=== PATIENT | male | born 1995 | race Hispanic/Latino ===

== ENCOUNTER 2019-04-19 19:12 | Emergency (ER) | payer OTHER ==
[~2019-04-19] VITALS: Ht 172.7 cm; Wt 93.2 kg
[2019-04-19] MEDS ORDERED: ACET-683 PO (19:18)
[2019-04-19] MEDS ORDERED: IBUP200T45 PO (19:18)
[2019-04-19 20:17] LABS: INFLUENZA A AMPLIFICATION NEGATIVE (NEGATIVE); INFLUENZA B AMPLIFICATION NEGATIVE (NEGATIVE)
[2019-04-19 20:24] LABS: HEMATOCRIT 40.5 % (42.0-52.0); HEMOGLOBIN 13.5 g/dl (13.5-17.5); MEAN CORPUSCULAR HEMOGLOBIN 29.5 pg (27.0-33.0); MEAN CORPUSCULAR HGB CONC 33.3 g/dl (32.0-36.5); MEAN CORPUSCULAR VOLUME 88.4 fl (80.0-96.0); PLATELET COUNT, AUTOMATED 207 10^3/uL (150-450); RED BLOOD COUNT 4.58 10^6/uL (4.30-6.10); WHITE BLOOD COUNT 11.2 10^3/uL (4.0-10.0)
[2019-04-19 20:45] LABS: MONO SCRN NEGATIVE (NEGATIVE)
[2019-04-19] MEDS ORDERED: MAGIC MOUTHWASH SUSPENSION BTL SSP PRN (21:00)
[2019-04-19] MEDS ORDERED: AZIT500T5 PO (21:29)
[2019-04-19] MEDS ORDERED: MAGICMW SSP (21:30)
[2019-04-19 21:42] VITALS: BP 130/78
[2019-04-19] MEDS ORDERED: AZITHROMYCIN 250 MG TAB PO ONE (21:45)
--- NOTE | 2019-04-20 09:46 | REP ---
REASON: Flu-like illness. FINDINGS: The superior mediastinal structures are midline. The cardiac silhouette is unremarkable in size, shape, and position. The diaphragmatic surfaces of the lungs are regular, and the costophrenic angles are clear. The pulmonary more are clear. The imaged osseous structures are intact. IMPRESSION: There is no acute cardiopulmonary disease. Electronically Signed by Barry Jamison DO 04/20/2019 10:22 A
== END 2019-04-19 21:43 | disposition home or self-care (01) ==
LOC: M ED 19:12
DX: B34.9 Viral infection, unspecified (principal)

== ENCOUNTER 2019-04-21 09:40 | Emergency (ER) | payer OTHER ==
[~2019-04-21] VITALS: Ht 172.7 cm; Wt 92.3 kg
[~2019-04-21 09:40] MED LIST: ACET-683 PO; AZIT500T5 PO; IBUP200T45 PO; MAGICMW SSP
[2019-04-21 09:41] VITALS: BP 140/61
[2019-04-21] MEDS ORDERED: MAGIC MOUTHWASH SUSPENSION BTL SS STA (10:08)
== END 2019-04-21 10:38 | disposition home or self-care (01) ==
LOC: M ED 09:40
DX: B08.5 Enteroviral vesicular pharyngitis (principal)